=== PATIENT | female | born 1990 | race Caucasian/White ===

== ENCOUNTER 2016-11-10 14:07 | Emergency (ER) | payer BC ==
[~2016-11-10] VITALS: Ht 154.9 cm; Wt 43.1 kg
[~2016-11-10 14:07] MED LIST: 'PARAFON FORTE500 M1 PO; APRISO0.375 GM PO; ASACOL400 MG PO; AUGMENTIN 500 M1 TAB PO; BACTRIM DS 8001 TA1 PO; BENADRYL50 MG PO; CLORAZEPATE7.5 MG PO; EFFEXOR37.5 MG PO; FOLIC ACID1 MG PO; HYDROCODONE BIT1 T11 PO; K-DUR 20MEQ20 MEQ PO; LOMOTIL 0.025 M1 TA1 PO; MEDROL DOSEPAK4 MG PO; MOTRIN800 MG PO; NAPROSYN500 MG PO; PERCOCET 325 MG1 TA7 PO; PRILOSEC40 MG PO; SULFASALAZINE500 M1 PO; TRAMADOL50 MG PO; UCERIS9 M1 PO; ULTRAM50 MG PO; VICODIN 5/500 505 MG PO; XARELTO10 MG PO; XERALTO; ZOFRAN ODT4 MG SL
[2016-11-10 14:38] LABS: BASO % 0.4 % (0.0-1.0); EOS # 0.5 10*3/uL (0.0-0.4); HEMATOCRIT 41.2 % (37.0-47.0); HEMOGLOBIN 13.6 g/dl (12.0-16.0); LYMPH # 3.2 10*3/uL (1.3-4.4); MEAN CELL VOLUME 90.4 fl (81.0-99.0); MEAN CORPUSCULAR HGB 29.8 pg (27.0-31.0); MEAN PLATELET VOLUME 9.4 fl (9.6-12.3); MONO # 0.6 10*3/uL (0.1-1.0); MONO % 4.9 % (3.0-9.0); NEUT # 7.1 10*3/uL (2.3-7.9); NEUT % 62.4 % (47.0-73.0); PLATELET COUNT AUTOMATED 235 10*3/uL (130-400); RED BLOOD COUNT 4.56 10*6/uL (4.10-5.10); RED CELL DISTRI WIDTH 13.1 % (0-14.5); WHITE BLOOD COUNT 11.3 10*3/uL (4.8-10.8)
[2016-11-10 14:53] LABS: ALBUMIN 4.2 gm/dl (3.1-4.5); ALKALINE PHOSPHATASE 74 U/L (45-117); BUN 11 mg/dl (7-24); CHLORIDE 104 mmol/L (98-107); CREATININE 0.86 mg/dL (0.55-1.02); LIPASE 220 U/L (73-393); POTASSIUM 4.2 mmol/L (3.5-5.1); SGOT/AST 14 IU/L (3-35); SGPT/ALT 16 U/L (12-78); SODIUM 139 mmol/L (136-145); TOTAL PROTEIN 8.2 gm/dL (6.4-8.2)
[2016-11-10 15:01] LABS: BILIRUBIN NEGATIVE (NEGATIVE); BLOOD NEGATIVE (NEGATIVE); CLARITY SL CLOUDY (CLEAR); COLOR YELLOW (YELLOW); GLUCOSE NEGATIVE (NEGATIVE); KETONE NEGATIVE (NEGATIVE); LEUKO ESTERASE NEGATIVE (NEGATIVE); NITRITE NEGATIVE (NEGATIVE); PH 5.5 (5.0-9.0); SPECIFIC GRAVITY >= 1.030 (1.005-1.030); UROBILINOGEN 0.2 E.U./dl (0.2-1.0)
[2016-11-10 15:08] LABS: EPITHELIAL CELLS 21-30
[2016-11-10 15:09] LABS: BACTERIA TRACE
[2016-11-10] MEDS ORDERED: CIPRO500 MG PO (17:55)
[2016-11-10] MEDS ORDERED: ZOFRAN ODT4 MG SL (17:56)
== END 2016-11-10 18:01 | disposition home or self-care (01) ==
LOC: ED 14:07
PROVIDERS: Nurse Practitioner Family
DX: K52.9 Noninfective gastroenteritis and colitis, unspecified (principal); N85.8 Other specified noninflammatory disorders of uterus; F17.200 Nicotine dependence, unspecified, uncomplicated; Z88.2 Allergy status to sulfonamides; Z79.899 Other long term (current) drug therapy

== ENCOUNTER 2017-02-09 16:34 | Emergency (ER) | payer BC ==
[~2017-02-09] VITALS: Ht 154.9 cm; Wt 43.5 kg
[~2017-02-09 16:34] MED LIST changes: +CIPRO500 MG PO
[2017-02-09 17:25] LABS: BILIRUBIN NEGATIVE (NEGATIVE); BLOOD 1+ (NEGATIVE); CLARITY CLEAR (CLEAR); COLOR YELLOW (YELLOW); GLUCOSE NEGATIVE (NEGATIVE); KETONE NEGATIVE (NEGATIVE); LEUKO ESTERASE NEGATIVE (NEGATIVE); NITRITE NEGATIVE (NEGATIVE); PH 5.5 (5.0-9.0); SPECIFIC GRAVITY 1.025 (1.005-1.030); UROBILINOGEN 0.2 E.U./dl (0.2-1.0)
[2017-02-09 17:33] LABS: BACTERIA TRACE; WBC 0-2 wbc/hpf (0-5)
== END 2017-02-09 19:00 | disposition home or self-care (01) ==
LOC: ED 16:34
PROVIDERS: Nurse Practitioner Family
DX: Z32.02 Encounter for pregnancy test, result negative (principal); R10.9 Unspecified abdominal pain; Z79.899 Other long term (current) drug therapy; Z88.2 Allergy status to sulfonamides

== ENCOUNTER → 2021-03-13 | Outpatient (CLI) | payer OTHER ==
[~2021-03-13] MED LIST changes: +AMINOPHYLLIN200 MG PO; +PYRIDIUM200 M1 PO
== END ==
LOC: COVID19 16:41
PROVIDERS: ATTEND Family Medicine
DX: Z11.52 Encounter for screening for COVID-19 (principal); Z20.822 Contact with and (suspected) exposure to COVID-19

== ENCOUNTER 2021-08-11 15:27 | Emergency (ER) | payer OTHER ==
[~2021-08-11] VITALS: Ht 154.9 cm; Wt 54.0 kg
[2021-08-11 16:15] LABS: BASO % 0.4 % (0.0-1.0); EOS # 0.1 10*3/uL (0.0-0.4); EOS % 1.3 % (1.0-4.0); HEMATOCRIT 35.6 % (37.0-47.0); LYMPH # 1.3 10*3/uL (1.3-4.4); LYMPH % 15.9 % (27.0-41.0); MEAN CELL VOLUME 87.7 fl (81.0-99.0); MEAN CORPUSCULAR HGB 29.1 pg (27.0-31.0); MEAN CORPUSCULAR HGB CONC 33.1 g/dl (33.0-37.0); MEAN PLATELET VOLUME 8.9 fl (9.6-12.3); MONO # 0.8 10*3/uL (0.1-1.0); MONO % 10.2 % (3.0-9.0); NEUT # 5.9 10*3/uL (2.3-7.9); PLATELET COUNT AUTOMATED 280 10*3/uL (130-400); RED BLOOD COUNT 4.06 10*6/uL (4.10-5.10); RED CELL DISTRI WIDTH 13.2 % (0-14.5); WHITE BLOOD COUNT 8.2 10*3/uL (4.8-10.8)
[2021-08-11 16:29] LABS: ALKALINE PHOSPHATASE 68 U/L (45-117); BUN 13 mg/dl (7-24); CHLORIDE 105 mmol/L (98-107); CREATININE 0.64 mg/dL (0.55-1.02); POTASSIUM 3.6 mmol/L (3.5-5.1); SGOT/AST 10 IU/L (3-35); SGPT/ALT 12 U/L (12-78); SODIUM 139 mmol/L (136-145); TOTAL PROTEIN 6.9 gm/dL (6.4-8.2)
== END 2021-08-11 16:33 | disposition left against medical advice (07) ==
LOC: ED 15:27
PROVIDERS: Physician Assistant
DX: O46.91 Antepartum hemorrhage, unspecified, first trimester (principal); Z3A.11 11 weeks gestation of pregnancy; Z88.2 Allergy status to sulfonamides

== ENCOUNTER 2023-02-27 14:29 | Emergency (ER) | payer OTHER ==
[~2023-02-27] VITALS: Ht 160 cm; Wt 54.9 kg
[2023-02-27 14:54] LABS: BILIRUBIN Negative (Negative); BLOOD 2+ (Negative); CLARITY Clear (Clear); COLOR Yellow (Yellow); GLUCOSE Negative (Negative); KETONE Negative (Negative); LEUKO ESTERASE Trace (Negative); NITRITE Negative (Negative); PH 5.5 (4.5-8.0); SPECIFIC GRAVITY <= 1.005 (1.001-1.030); UROBILINOGEN 0.2 E.U./dl (0.0-1.0)
[2023-02-27 15:06] LABS: BACTERIA 1+; RBC 0-2 rbc/hpf (0-2)
[2023-02-27] MEDS ORDERED: CIPRO500 MG PO (17:00)
[2023-02-27] MEDS ORDERED: MELOXICAM15 MG PO (17:00)
== END 2023-02-27 17:12 | disposition home or self-care (01) ==
LOC: ED 14:29
PROVIDERS: Emergency Medicine
DX: N39.0 Urinary tract infection, site not specified (principal); M54.50 Low back pain, unspecified; F41.9 Anxiety disorder, unspecified; F32.A Depression, unspecified; Z88.2 Allergy status to sulfonamides; Z98.890 Other specified postprocedural states; Z87.891 Personal history of nicotine dependence